=== PATIENT | male | born 1975 | race Hispanic/Latino ===

== ENCOUNTER 2024-02-12 04:38 | Emergency (ER) | payer OTHER ==
[2024-02-12] MEDS ORDERED: Lidocaine 1% (PF) 30 ML VIAL ONE (04:51)
[2024-02-12] MEDS ORDERED: Ibuprofen 800 MG TAB ONE (04:51)
[2024-02-12] MEDS ORDERED: Boostrix 0.5 ML (Tdap) VIAL (>/=7 yrs of age) ONE (04:51)
== END 2024-02-12 07:50 ==
LOC: NAV ERS 04:38 → EEVIPCON 04:38 → NAV ERS 07:50
DX: S01.511A Laceration without foreign body of lip, initial encounter (principal); E87.1 Hypo-osmolality and hyponatremia; Z23 Encounter for immunization; Z79.82 Long term (current) use of aspirin; Z79.899 Other long term (current) drug therapy
CPT/HCPCS: 12011; 70450; 70486; 72125; 90471; 90715; J2001